=== PATIENT | female | born 2000 | race American Indian/Alaskan Native ===

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

== ENCOUNTER 2021-04-30 23:34 | Emergency (ER) | payer SELFPAY ==
[2021-05-01 00:26] VITALS: BP 115/68
== END 2021-05-01 00:25 | disposition left against medical advice (07) ==
LOC: ED 23:34
DX: N39.0 Urinary tract infection, site not specified (principal); Z53.21 Procedure and treatment not carried out due to patient leaving prior to being seen by health care provider